=== PATIENT | male | born 1980 | race Caucasian/White ===

== ENCOUNTER 2019-08-06 04:40 | Emergency (ER) | payer BC, OTHER ==
[2019-08-06] MEDS ORDERED: Sodium Chloride 0.9% 10 ML Syringe FLUSH PRN (04:57)
[2019-08-06] MEDS ORDERED: HYDROmorphone 1 MG/ML Syringe IVPUSH ONE (04:58)
[2019-08-06] MEDS ORDERED: Lactated Ringers 1,000 ML IV SCH (05:00)
--- NOTE | 2019-08-06 05:02 | EDM.PDOC ---
ED HPI GENERAL MEDICAL PROBLEM - General Chief Complaint: Abdominal Pain Stated Complaint: abdominal pain Time Seen by Provider: 08/06/19 04:53 Source of Information: Reports: Patient History Limitations: Reports: No Limitations - History of Present Illness INITIAL COMMENTS - FREE TEXT/NARRATIVE: The patient presents with abdominal pain. He said this started about 2am when he got up and got something to eat. The pain is worse. He went to bed feeling fine. He did not go to the gym today. It was an off day. He says he lost lots of weight recently and his umbilicus has been "jacked up." He does have an umbilical hernia that is tender now. It has never been like this before. He has no fever, chills, cough, congestion, runny nose, nausea, vomiting, diarrhea or dysuria. He still has his gallbladder and appendix. Onset: Gradual Duration: Hour(s): Location: Reports: Abdomen Quality: Reports: Sharp Severity: Moderate Improves with: Reports: None Worsens with: Reports: None Associated Symptoms: Reports: No Other Symptoms Abdominal Pain Score (Numeric/FACES): 7 - Related Data Allergies Allergy/AdvReac Type Severity Reaction Status Date / Time No Known Allergies Allergy Verified 08/06/19 04:50 Home Meds: Home Meds . [No Known Home Meds] 08/06/19 [History] Past Medical History - Past Health History Medical/Surgical History: Denies Medical/Surgical History Social & Family History - Tobacco Use Smoking Status *Q: Never Smoker ED ROS GENERAL - Review of Systems Review Of Systems: See Below Constitutional: Reports: No Symptoms HEENT: Reports: No Symptoms Respiratory: Reports: No Symptoms Cardiovascular: Reports: No Symptoms Endocrine: Reports: No Symptoms GI/Abdominal: Reports: Abdominal Pain. Denies: Diarrhea, Nausea, Vomiting : Reports: No Symptoms Musculoskeletal: Reports: No Symptoms ED EXAM, GI/ABD - Physical Exam Exam: See Below Exam Limited By: No Limitations General Appearance: Alert, No Apparent Distress Ears: Normal External Exam Nose: Normal Inspection Head: Atraumatic, Normocephalic Neck: Normal Inspection Respiratory/Chest: No Respiratory Distress, Lungs Clear, Normal Breath Sounds Cardiovascular: Regular Rate, Rhythm, No Edema, No Murmur GI/Abdominal Exam: Soft, Tender (Moderate tenderness to the umbilicus where there is a hernia) Course - Vital Signs Last Recorded V/S: Last Vital Signs Temp 97.4 F 08/06/19 04:48 Pulse 88 08/06/19 04:48 Resp 16 08/06/19 04:48 BP 148/98 H 08/06/19 04:48 Pulse Ox 99 08/06/19 04:48 - Orders/Labs/Meds Orders: Active Orders 24 hr Category Date Time Status Peripheral IV Care [RC] . DIRECTED Care 08/06/19 04:57 Active Lactated Ringers [Ringers, Lactated] 1,000 ml Med 08/06/19 05:00 Active IV ASDIRECTED Sodium Chloride 0.9% [Saline Flush] Med 08/06/19 04:57 Active 10 ml FLUSH ASDIRECTED PRN Peripheral IV Insertion Adult [OM.PC] Stat Oth 08/06/19 04:57 Ordered Medication Orders Lactated Ringer's (Ringers, Lactated) 1,000 mls @ 125 mls/hr IV ASDIRECTED CHAZ Last Admin: 08/06/19 05:04 Dose: 125 mls/hr Sodium Chloride (Saline Flush) 10 ml FLUSH ASDIRECTED PRN PRN Reason: Keep Vein Open Last Admin: 08/06/19 05:04 Dose: 10 ml Labs: Laboratory Tests 08/06/19 08/06/19 Range/Units 05:00 05:00 WBC 6.72 (4.23-9.07) K/mm3 RBC 5.18 (4.63-6.08) M/mm3 Hgb 15.6 (13.7-17.5) gm/dl Hct 43.7 (40.1-51.0) % MCV 84.4 (79.0-92.2) fl MCH 30.1 (25.7-32.2) pg MCHC 35.7 H (32.2-35.5) g/dl RDW Std Deviation 43.5 (35.1-43.9) fL Plt Count 300 (163-337) K/mm3 MPV 9.3 L (9.4-12.3) fl Neut % (Auto) 65.5 (34.0-67.9) % Lymph % (Auto) 17.1 L (21.8-53.1) % Cascade % (Auto) 7.1 (5.3-12.2) % Eos % (Auto) 10.0 H (0.8-7.0) Baso % (Auto) 0.3 (0.1-1.2) % Neut # (Auto) 4.40 (1.78-5.38) K/mm3 Lymph # (Auto) 1.15 L (1.32-3.57) K/mm3 Cascade # (Auto) 0.48 (0.30-0.82) K/mm3 Eos # (Auto) 0.67 H (0.04-0.54) K/mm3 Baso # (Auto) 0.02 (0.01-0.08) K/mm3 Sodium 138 (136-145) mEq/L Potassium 4.3 (3.5-5.1) mEq/L Chloride 103 (98-107) mEq/L Carbon Dioxide 26 (21-32) mEq/L Anion Gap 13.3 (5-15) BUN 21 H (7-18) mg/dL Creatinine 0.9 (0.7-1.3) mg/dL Est Cr Clr Drug Dosing 131.93 mL/min Estimated GFR (MDRD) > 60 (>60) mL/min BUN/Creatinine Ratio 23.3 H (14-18) Glucose 119 H (74-106) mg/dL Calcium 9.1 (8.5-10.1) mg/dL Total Bilirubin 0.5 (0.2-1.0) mg/dL AST 77 H (15-37) U/L ALT 87 H (16-63) U/L Alkaline Phosphatase 39 L (46-116) U/L Total Protein 7.6 (6.4-8.2) g/dl Albumin 3.7 (3.4-5.0) g/dl Globulin 3.9 gm/dL Albumin/Globulin Ratio 1.0 (1-2) Lipase 177 (73-393) U/L Meds: Medications Generic Name Dose Route Start Last Admin Trade Name Freq PRN Reason Stop Dose Admin Lactated Ringer's 1,000 mls @ 125 mls/hr 08/06/19 05:00 08/06/19 05:04 Ringers, Lactated IV 125 mls/hr ASDIRECTED CHAZ Administration Sodium Chloride 10 ml 08/06/19 04:57 08/06/19 05:04 Saline Flush FLUSH 10 ml ASDIRECTED PRN Administration Keep Vein Open Discontinued Medications Generic Name Dose Route Start Last Admin Trade Name Sylvester PRN Reason Stop Dose Admin Hydromorphone HCl 1 mg 08/06/19 04:58 08/06/19 05:03 Dilaudid IVPUSH 08/06/19 04:59 1 mg ONETIME ONE Administration - Re-Assessments/Exams Free Text/Narrative Re-Assessment/Exam: 08/06/19 05:02 I ordered an IV LR at 125ml/hr, dilaudid 1mg IV, labs and UA. I will try to reduce it after the dilaudid. 08/06/19 06:02 I was able to reduce the hernia. His CBC looks good. His CMP looks good except his liver enzymes were slightly elevated. He does admit to taking steroids. I will have him follow up with a general surgeon. I will have him stop the steroids. Departure - Departure Time of Disposition: 06:05 Disposition: Home, Self-Care 01 Condition: Good Clinical Impression: Umbilical hernia Qualifiers: Obstruction and gangrene presence: without obstruction or gangrene Qualified Code(s): K42.9 - Umbilical hernia without obstruction or gangrene - Discharge Information *PRESCRIPTION DRUG MONITORING PROGRAM REVIEWED*: No *COPY OF PRESCRIPTION DRUG MONITORING REPORT IN PATIENT LUDIN: No Referrals: Júnior Hernandez Jr, MD [Primary Care Provider] - Quentin Rsuh MD [Physician] - 1 Week Forms: ED Department Discharge Additional Instructions: Follow up with a general surgeon Dr Rush or one in [place]. Try to stop taking the steroids. If the hernia gets stuck again, lay down and put your feet up, try to relax and put gentle pressure on the hernia and try to push it back. If that does not work, please return. - My Orders Last 24 Hours: My Active Orders 08/06/19 04:57 Peripheral IV Care [RC] . DIRECTED Sodium Chloride 0.9% [Saline Flush] 10 ml FLUSH ASDIRECTED PRN Peripheral IV Insertion Adult [OM.PC] Stat 08/06/19 05:00 Lactated Ringers [Ringers, Lactated] 1,000 ml IV ASDIRECTED - Assessment/Plan Last 24 Hours: My Active Orders 08/06/19 04:57 Peripheral IV Care [RC] . DIRECTED Sodium Chloride 0.9% [Saline Flush] 10 ml FLUSH ASDIRECTED PRN Peripheral IV Insertion Adult [OM.PC] Stat 08/06/19 05:00 Lactated Ringers [Ringers, Lactated] 1,000 ml IV ASDIRECTED
== END 2019-08-06 06:17 | disposition home or self-care (01) ==
LOC: JD.ED 04:40
DX: K42.9 Umbilical hernia without obstruction or gangrene (principal)
CPT/HCPCS: 36415; 80053; 83690; 85025; 96361; 96374; 99284; J1170; J7120

== ENCOUNTER 2019-11-05 13:00 | Emergency (ER) | payer OTHER ==
[2019-11-05] MEDS ORDERED: Ondansetron 4 MG/2 ML SDV IVPUSH ONE ×2 (15:05→16:30)
[2019-11-05] MEDS ORDERED: Sodium Chloride 0.9% 1,000 ML IV SCH ×2 (15:15→16:30)
--- NOTE | 2019-11-05 15:20 | EDM.PDOC ---
<Lizbeth Boyer - Last Filed: 11/05/19 15:13> ED HPI GENERAL MEDICAL PROBLEM - General Chief Complaint: Gastrointestinal Problem Stated Complaint: VOMITING AND UNABLE TO HOLD ANYTHING DOWN Time Seen by Provider: 11/05/19 14:49 Source of Information: Reports: Patient History Limitations: Reports: No Limitations - History of Present Illness INITIAL COMMENTS - FREE TEXT/NARRATIVE: Patient is a pleasant 39-year-old male that presented to the ED today with complaints of abdominal pain/cramping, nausea, vomiting, and diarrhea. He states last night he started to feel fatigued and got the chills. Then his morning when he awoke he felt very nauseous and abdominal bloating. He reports that throughout this morning and afternoon he has had roughly 4-5 episodes of vomiting and 15-20 episodes of diarrhea. He reports that two hours ago he started to feel dizzy, lightheaded, and was getting short of breath with exertion. He is concerned that he could have damaged the umbilical hernia mesh that was placed in August 2019 while he was dry heaving and vomiting. Patient reports that he was seen at [facility] last week for respiratory symptoms, at which time he was tested for strep and influenza. Both tests came back negative and he notes that his symptoms had mainly resolved before today. Onset: Sudden Duration: Hour(s): Location: Reports: Abdomen (bloating and cramping) Quality: Reports: Dull Severity: Mild Improves with: Reports: Rest Worsens with: Reports: Eating Associated Symptoms: Reports: Fever/Chills, Nausea/Vomiting, Shortness of Breath Abdomen Pain Score (Numeric/FACES): 8 - Related Data Allergies Allergy/AdvReac Type Severity Reaction Status Date / Time No Known Allergies Allergy Verified 11/05/19 13:42 Home Meds: Home Meds Ondansetron [Zofran ODT] 4 mg PO Q6H PRN #10 tab.dis 11/05/19 [Rx] Past Medical History - Past Health History Medical/Surgical History: Denies Medical/Surgical History - Past Surgical History GI Surgical History: Reports: Hernia, Abdominal Social & Family History - Family History Family Medical History: Noncontributory - Tobacco Use Smoking Status *Q: Never Smoker Second Hand Smoke Exposure: No - Caffeine Use Caffeine Use: Reports: Coffee, Energy Drinks, Soda - Recreational Drug Use Recreational Drug Use: No ED ROS GENERAL - Review of Systems Review Of Systems: See Below Constitutional: Reports: Fever, Chills, Fatigue, Night Sweats, Decreased Appetite. Denies: Weakness HEENT: Reports: Throat Pain. Denies: Ear Pain, Eye Pain, Rhinitis, Vertigo, Vision Change Respiratory: Reports: Shortness of Breath. Denies: Wheezing, Cough Cardiovascular: Reports: Lightheadedness. Denies: Chest Pain, Edema, Syncope GI/Abdominal: Reports: Abdominal Pain, Diarrhea, Decreased Appetite, Distension , Stool Incontinence, Vomiting. Denies: Black Stool, Bloody Stool, Hematemesis , Nausea : Reports: No Symptoms. Denies: Dysuria, Hematuria Musculoskeletal: Reports: Muscle Pain. Denies: Joint Pain Skin: Reports: Erythema (bilateral cheeks). Denies: Pallor, Rash Neurological: Reports: Dizziness. Denies: Headache, Numbness, Syncope, Tingling , Weakness Psychiatric: Reports: No Symptoms Hematologic/Lymphatic: Reports: No Symptoms ED EXAM, GI/ABD - Physical Exam Exam: See Below Exam Limited By: No Limitations General Appearance: Alert, WD/WN, No Apparent Distress Ears: Normal External Exam, Normal Canal, Normal TMs Nose: Normal Inspection, Normal Mucosa, No Blood. No: Nasal Drainage Throat/Mouth: Other (erythematous posterior oropharynx, dry mucous membranes) Head: Atraumatic, Normocephalic. No: Sinus Tenderness Neck: Normal Inspection, Supple, Non-Tender, Full Range of Motion Respiratory/Chest: No Respiratory Distress, Lungs Clear, Normal Breath Sounds, Chest Non-Tender Cardiovascular: Normal Peripheral Pulses, No Edema, No Murmur, Tachycardia GI/Abdominal Exam: Normal Bowel Sounds, Soft, No Organomegaly, Tender ( generalized in all quadrants) Back Exam: Normal Inspection, Full Range of Motion. No: CVA Tenderness (L), CVA Tenderness (R) Extremities: Normal Inspection, Normal Range of Motion, Non-Tender, No Pedal Edema, Normal Capillary Refill Neurological: Alert, Oriented, Normal Cognition, No Motor/Sensory Deficits Psychiatric: Normal Affect, Normal Mood Skin Exam: Warm, Dry, Intact, No Rash, Erythema (bilateral cheeks- warm to touch ) Lymphatic: No Adenopathy Course - Vital Signs Last Recorded V/S: Last Vital Signs Temp 102.1 F H 11/05/19 13:38 Pulse 119 H 11/05/19 13:38 Resp 16 11/05/19 13:38 BP 123/88 11/05/19 13:38 Pulse Ox 96 11/05/19 13:38 - Orders/Labs/Meds Orders: Active Orders 24 hr Category Date Time Status CULTURE STREP A CONFIRMATION [RM] Stat Lab 11/05/19 15:37 Results Rapid Strep w/culture conf [STREP SCRN A RAPID W CULT Lab 11/05/19 15:37 Results CONF] [RM] Stat Sodium Chloride 0.9% [Normal Saline] 1,000 ml Med 11/05/19 15:15 Active IV ASDIRECTED Sodium Chloride 0.9% [Normal Saline] 1,000 ml Med 11/05/19 16:30 Active IV ASDIRECTED Medication Orders Sodium Chloride (Normal Saline) 1,000 mls @ 999 mls/hr IV ASDIRECTED CHAZ Last Admin: 11/05/19 15:29 Dose: 999 mls/hr Sodium Chloride (Normal Saline) 1,000 mls @ 999 mls/hr IV ASDIRECTED CHAZ Last Admin: 11/05/19 16:37 Dose: 999 mls/hr Labs: Laboratory Tests 11/05/19 11/05/19 11/05/19 Range/Units 14:56 14:57 14:57 WBC 7.34 (4.23-9.07) K/mm3 RBC 5.91 (4.63-6.08) M/mm3 Hgb 17.2 D (13.7-17.5) gm/dl Hct 49.0 (40.1-51.0) % MCV 82.9 (79.0-92.2) fl MCH 29.1 (25.7-32.2) pg MCHC 35.1 (32.2-35.5) g/dl RDW Std Deviation 43.8 (35.1-43.9) fL Plt Count 293 (163-337) K/mm3 MPV 9.5 (9.4-12.3) fl Neutrophils % (Manual) 88 H (40-60) % Band Neutrophils % 3 (0-10) % Lymphocytes % (Manual) 7 L (20-40) % Atypical Lymphs % 0 % Monocytes % (Manual) 2 (2-10) % Eosinophils % (Manual) 0 L (0.8-7.0) % Basophils % (Manual) 0 L (0.2-1.2) Platelet Estimate Adequate RBC Morph Comment Normal Sodium 135 L (136-145) mEq/L Potassium 4.1 (3.5-5.1) mEq/L Chloride 101 (98-107) mEq/L Carbon Dioxide 20 L (21-32) mEq/L Anion Gap 18.1 H (5-15) BUN 32 H (7-18) mg/dL Creatinine 1.3 (0.7-1.3) mg/dL Est Cr Clr Drug Dosing 90.46 mL/min Estimated GFR (MDRD) > 60 (>60) mL/min BUN/Creatinine Ratio 24.6 H (14-18) Glucose 129 H (74-106) mg/dL Calcium 8.4 L (8.5-10.1) mg/dL Magnesium (1.8-2.4) mg/dl Total Bilirubin 0.6 (0.2-1.0) mg/dL AST 34 (15-37) U/L ALT 55 (16-63) U/L Alkaline Phosphatase 49 (46-116) U/L Total Protein 7.2 (6.4-8.2) g/dl Albumin 3.6 (3.4-5.0) g/dl Globulin 3.6 gm/dL Albumin/Globulin Ratio 1.0 (1-2) Urine Color Yellow (Yellow) Urine Appearance Clear (Clear) Urine pH 5.5 (5.0-8.0) Ur Specific Lilly 1.025 (1.005-1.030) Urine Protein Negative (Negative) Urine Glucose (UA) Negative (Negative) Urine Ketones Negative (Negative) Urine Occult Blood Negative (Negative) Urine Nitrite Negative (Negative) Urine Bilirubin Negative (Negative) Urine Urobilinogen 0.2 (0.2-1.0) Ur Leukocyte Esterase Negative (Negative) 11/05/19 Range/Units 14:57 WBC (4.23-9.07) K/mm3 RBC (4.63-6.08) M/mm3 Hgb (13.7-17.5) gm/dl Hct (40.1-51.0) % MCV (79.0-92.2) fl MCH (25.7-32.2) pg MCHC (32.2-35.5) g/dl RDW Std Deviation (35.1-43.9) fL Plt Count (163-337) K/mm3 MPV (9.4-12.3) fl Neutrophils % (Manual) (40-60) % Band Neutrophils % (0-10) % Lymphocytes % (Manual) (20-40) % Atypical Lymphs % % Monocytes % (Manual) (2-10) % Eosinophils % (Manual) (0.8-7.0) % Basophils % (Manual) (0.2-1.2) Platelet Estimate RBC Morph Comment Sodium (136-145) mEq/L Potassium (3.5-5.1) mEq/L Chloride (98-107) mEq/L Carbon Dioxide (21-32) mEq/L Anion Gap (5-15) BUN (7-18) mg/dL Creatinine (0.7-1.3) mg/dL Est Cr Clr Drug Dosing mL/min Estimated GFR (MDRD) (>60) mL/min BUN/Creatinine Ratio (14-18) Glucose (74-106) mg/dL Calcium (8.5-10.1) mg/dL Magnesium 1.8 (1.8-2.4) mg/dl Total Bilirubin (0.2-1.0) mg/dL AST (15-37) U/L ALT (16-63) U/L Alkaline Phosphatase (46-116) U/L Total Protein (6.4-8.2) g/dl Albumin (3.4-5.0) g/dl Globulin gm/dL Albumin/Globulin Ratio (1-2) Urine Color (Yellow) Urine Appearance (Clear) Urine pH (5.0-8.0) Ur Specific Lilly (1.005-1.030) Urine Protein (Negative) Urine Glucose (UA) (Negative) Urine Ketones (Negative) Urine Occult Blood (Negative) Urine Nitrite (Negative) Urine Bilirubin (Negative) Urine Urobilinogen (0.2-1.0) Ur Leukocyte Esterase (Negative) Meds: Medications Generic Name Dose Route Start Last Admin Trade Name Freq PRN Reason Stop Dose Admin Sodium Chloride 1,000 mls @ 999 mls/hr 11/05/19 15:15 11/05/19 15:29 Normal Saline IV 999 mls/hr ASDIRECTED CHAZ Administration Sodium Chloride 1,000 mls @ 999 mls/hr 11/05/19 16:30 11/05/19 16:37 Normal Saline IV 999 mls/hr ASDIRECTED CHAZ Administration Discontinued Medications Generic Name Dose Route Start Last Admin Trade Name Freq PRN Reason Stop Dose Admin Ondansetron HCl 4 mg 11/05/19 15:05 11/05/19 15:29 Zofran IVPUSH 11/05/19 15:06 4 mg ONETIME ONE Administration Ondansetron HCl 4 mg 11/05/19 16:30 11/05/19 16:38 Zofran IVPUSH 11/05/19 16:31 4 mg ONETIME ONE Administration Departure - Departure Disposition: Home, Self-Care 01 Clinical Impression: Viral gastroenteritis - Discharge Information Prescriptions: Ondansetron [Zofran ODT] 4 mg PO Q6H PRN #10 tab.dis PRN Reason: Nausea Instructions: Viral Gastroenteritis, Adult Referrals: PCP,None [Primary Care Provider] - Forms: ED Department Discharge, ED Return to Work/School Form Additional Instructions: You were seen in the emergency department today for abrupt onset of nausea, vomiting, and diarrhea. Your work-up did show that you are mildly dehydrated, but did not show any signs of a bacterial infection. It is likely that you are suffering from a viral gastroenteritis, also known as the stomach flu. A prescription for Zofran has been sent to [facility]. Take this as needed for nausea. I also recommend that you start taking a probiotic which you may also purchase at the pharmacy. Recommend a clear liquid diet for the next 24 hours and then slowly advance her diet as tolerated. If you should experience any worsening symptoms or fail to improve over the next few days as expected, please return to the emergency department. Sepsis Event Note - Evaluation Sepsis Screening Result: No Definite Risk - Focused Exam Vital Signs: Vital Signs Temp Pulse Resp BP Pulse Ox 11/05/19 13:38 102.1 F H 119 H 16 123/88 96 Date Exam was Performed: 11/05/19 Time Exam was Performed: 15:13 - My Orders Last 24 Hours: My Active Orders 11/05/19 15:15 Sodium Chloride 0.9% [Normal Saline] 1,000 ml IV ASDIRECTED 11/05/19 15:37 CULTURE STREP A CONFIRMATION [RM] Stat Rapid Strep w/culture conf [STREP SCRN A RAPID W CULT CONF] [RM] Stat 11/05/19 16:30 Sodium Chloride 0.9% [Normal Saline] 1,000 ml IV ASDIRECTED - Assessment/Plan Last 24 Hours: My Active Orders 11/05/19 15:15 Sodium Chloride 0.9% [Normal Saline] 1,000 ml IV ASDIRECTED 11/05/19 15:37 CULTURE STREP A CONFIRMATION [RM] Stat Rapid Strep w/culture conf [STREP SCRN A RAPID W CULT CONF] [RM] Stat 11/05/19 16:30 Sodium Chloride 0.9% [Normal Saline] 1,000 ml IV ASDIRECTED <Lauren Reese - Last Filed: 11/05/19 17:42> Course - Re-Assessments/Exams Free Text/Narrative Re-Assessment/Exam: Patient's hematology was grossly unremarkable, with the exception of a mildly elevated anion gap of 18.1 as well as a BUN of 32. This indicates that the patient is mildly dehydrated. I feel is likely he is suffering from a viral gastroenteritis given the abrupt onset of symptoms and both his vomiting and diarrhea. His nausea did improve with the first dose of Zofran, but he states he feels still feels a little queasy. I will give him a second dose of Zofran and then encourage him to drink oral fluids. I will also give him a second liter of normal saline. 11/05/19 17:39 Patient symptoms are improved after the 2 L of saline and 2 doses of Zofran. He was able to drink a bottle of Powerade and keep it down without vomiting. We will discharge him home with a prescription for Zofran, recommendation for probiotics and clear liquids for the next 24 hours. Discharge instructions as documented. Departure - Departure Time of Disposition: 17:39 Condition: Fair - Discharge Information *PRESCRIPTION DRUG MONITORING PROGRAM REVIEWED*: No *COPY OF PRESCRIPTION DRUG MONITORING REPORT IN PATIENT LUDIN: No Sepsis Event Note - Focused Exam Date Exam was Performed: 11/05/19 Time Exam was Performed: 17:37
--- NOTE | 2019-11-05 15:45 | CR ---
Abdomen: Supine view of the abdomen was obtained as well as upright study. Bowel gas pattern is felt to be within normal limits. No abnormal calcifications or soft tissue abnormality is seen. Bony structures are unremarkable. No free air is seen. Impression: 1. Nothing acute is seen on two-view abdominal x-ray. Diagnostic code #1 Study was dictated in [place] Standard Time
== END 2019-11-05 18:00 | disposition home or self-care (01) ==
LOC: JD.ED 13:00
DX: A08.4 Viral intestinal infection, unspecified (principal)
CPT/HCPCS: 36415; 74019; 80053; 81003; 83735; 85007; 85027; 87081; 87430; 87804; 96361; 96374; 96376; 99284; J2405; J7030; 99283